=== PATIENT | female | born 1985 | race African-American/Black ===

== ENCOUNTER 2018-03-18 15:06 | Emergency (ER) | payer MEDICAID ==
[~2018-03-18] VITALS: Ht 160 cm; Wt 72.0 kg
[2018-03-18 17:11] LABS: CHLORIDE 104 mEq/L (98-107)
[2018-03-18 17:12] LABS: EOSINOPHILS % 0.4 % (0.0-5.0); HEMATOCRIT. 43.3 % (36.0-48.0); HEMOGLOBIN. 14.3 g/dL (12.0-16.0); LYMPHOCYTES % 22.6 % (20.0-50.0); MEAN CORPUSCULAR HEMOGLOBIN 30.5 pg (28.0-32.0); MEAN CORPUSCULAR VOLUME 92.1 fL (81.0-99.0); MEAN PLATELET VOLUME 8.4 fl (7.4-10.4); MONOCYTES % 9.6 % (2.0-8.0); NEUTROPHILS % 66.4 % (40.0-76.0); PLATELET 339 x1000/uL (130-400); RED BLOOD CELL COUNT 4.71 mill/uL (4.2-5.4)
[2018-03-18 17:16] LABS: HCG SCREEN POSITIVE
[2018-03-18 17:55] LABS: CLARITY URINE CLEAR (CLEAR); COLOR URINE DARK YELLOW (YELLOW); KETONES URINE 2+ (NEGATIVE); LEUKOCYTE ESTERASE URINE 1+ (NEGATIVE); NITRITE URINE NEGATIVE (NEGATIVE); OCCULT BLOOD URINE 1+ (NEGATIVE); PROTEIN URINE 1+ (NEGATIVE); SPECIFIC GRAVITY URINE 1.038 (1.005-1.030)
[2018-03-18] MEDS ORDERED: SODIUM CHLORIDE 0.9% 1,000 ML IV ONE (18:50)
[2018-03-18] MEDS ORDERED: ONDANSETRON HCL 4MG/2ML VIAL IV ONE ×2 (19:00→20:45)
[2018-03-18] MEDS ORDERED: ACETAMINOPHEN 325MG TABLET PO PRN (19:00)
[2018-03-18] MEDS ORDERED: NITROFURANTOIN 100MG M/M CAPSULE PO ONE (19:30)
[2018-03-18 22:40] VITALS: BP 121/69
== END 2018-03-18 22:40 | disposition home or self-care (01) ==
LOC: ER 16:47
DX: O23.11 Infections of bladder in pregnancy, first trimester (principal); O21.0 Mild hyperemesis gravidarum; O23.41 Unspecified infection of urinary tract in pregnancy, first trimester; O00.81 Other ectopic pregnancy with intrauterine pregnancy; O03.9 Complete or unspecified spontaneous abortion without complication; Z3A.01 Less than 8 weeks gestation of pregnancy
CPT/HCPCS: 36415; 76830; 76856; 80053; 81003; 83690; 84702; 84703; 85025; 96361; 96374; 96376; 99285; J2405; J7030; Z7610

== ENCOUNTER 2021-11-14 18:20 | Emergency (ER) | payer MEDICAID ==
[~2021-11-14] VITALS: Ht 160 cm; Wt 79.0 kg
[2021-11-14 18:23] VITALS: BP 154/92
[2021-11-14] MEDS ORDERED: ACETAMINOPHEN 325MG TABLET PO ONE (18:45)
[2021-11-14] MEDS ORDERED: IBUP-2029 MT (19:20)
[2021-11-14] MEDS ORDERED: ACET-2708 MT (19:20)
== END 2021-11-14 20:30 | disposition home or self-care (01) ==
LOC: ER 18:20
DX: S82.491A Other fracture of shaft of right fibula, initial encounter for closed fracture (principal); X58.XXXA Exposure to other specified factors, initial encounter; Y93.89 Activity, other specified; Y92.89 Other specified places as the place of occurrence of the external cause; Y99.8 Other external cause status; I10 Essential (primary) hypertension
CPT/HCPCS: 29515; 73590; 73610; 99284

== ENCOUNTER 2023-09-26 21:17 | Emergency (ER) | payer MEDICAID ==
[2023-09-26 21:17] VITALS: BP 112/67; PULSE 89; RESP 18; TEMP 98.8
[~2023-09-26 21:17] MED LIST: ACET-2708 MT; IBUP-2029 MT
== END 2023-09-26 22:05 | disposition left against medical advice (07) ==
LOC: ER 21:17
DX: O46.93 Antepartum hemorrhage, unspecified, third trimester (principal); Z3A.00 Weeks of gestation of pregnancy not specified
CPT/HCPCS: 99281